=== PATIENT | male | born 2000 | race Caucasian/White ===

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

== ENCOUNTER 2019-05-11 12:13 | Emergency (ER) | payer OTHER | END 2019-05-11 13:24 | disposition home or self-care (01) | LOC: JER 12:13 | DX: R05 Cough (principal) | CPT/HCPCS: 99282-25 ==